=== PATIENT | male | born 1980 | race African-American/Black ===

== ENCOUNTER 2018-04-21 10:37 | Emergency (ER) | payer MEDICAID ==
[~2018-04-21] VITALS: Ht 175.3 cm; Wt 89.8 kg
[2018-04-21 11:03] VITALS: BP 121/50
== END 2018-04-21 12:43 | disposition home or self-care (01) ==
LOC: ER 10:37
DX: S60.222A Contusion of left hand, initial encounter (principal); M25.532 Pain in left wrist; F12.90 Cannabis use, unspecified, uncomplicated; W22.8XXA Striking against or struck by other objects, initial encounter; Y93.89 Activity, other specified; Y99.8 Other external cause status; Y92.89 Other specified places as the place of occurrence of the external cause
CPT/HCPCS: 29125; 73090; 73130